=== PATIENT | male | born 1985 | race African-American/Black ===

== ENCOUNTER 2020-06-30 09:48 | Outpatient (RCR) | payer BC, SELFPAY | END 2020-08-23 23:59 | LOC: IMMUN 09:48 | PROVIDERS: PCP Family Medicine; Referring Provider Family Medicine; Visit Provider Family Medicine | DX: Z23 Encounter for immunization (principal) | CPT/HCPCS: 0012A; 91301 ==

== ENCOUNTER 2023-11-14 13:00 | Outpatient (RCR) | payer OTHER, BC, SELFPAY ==
--- NOTE | 2023-10-18 11:57 | HP.OTEVAL_ITS ---
Patient's Visit Information Visit Information Visit Information: CAROL ANN Jr. is a 38 year old M, referred to Occupational Therapy by Dr. Tom Moreno MD, with a diagnosis of right wrist sprain. Date of Evaluation: 10/18/23 Occupational Therapist: Julia Armstrong, DARIUS/Leonor, CHT Subjective Subjective: This 38 year old male was seen for OT eval with dx of right wrist sprain. 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 Pt would benefit from skilled OT services 2-3x week for 6 weeks to return pt to his PLOF. Today therapist ed. pt on dx and wrist ergonomics with grasp. Therapist also initiated wrist stretches to decrease pts tightness. Pt demo understanding of ex and agree to POC. Rehabilitation Potential: Good Anticipated Interventions Anticipated Interventions: A/AAROM/PROM, Strengthening, Triggerpoint Release, Modalities, Joint Protection/Energy Conservation, Ergonomic Education and Home Program Visit Plan Frequency: 2-3x /Week Duration: 6 Weeks TEXT: Thank you for the opportunity to evaluate your patient. For Medicare and Medicare HMO plans, please review the plan of care and approve it. It will need to be FAXED BACK to us at [phone] for Medicare purposes. Please let me know if there are questions or concerns regarding this plan of care. Physician Signature: Date:
--- NOTE | 2023-11-15 10:53 | HP.OTDCSUM ---
Discharge Summary D/C Summary: It has been my pleasure to treat CAROL ANN Jr. under orders from Dr. Tom Moreno MD, for the diagnosis of right wrist sprain for a total of 8 visit(s). Please see the following information for a summary of their discharge status. 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 Goals are met at this time, pt agrees to d/c at this time. 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 pt has made significant gains and tolerated therapy well. pt to continue HEP and agrees to POC. d/c sentence: If there are questions or concerns regarding this patient's occupational therapy, please fell free to call me at [phone]. Thank you for the referral of this patient. Sincerely, Julia Armstrong OTR/L, CHT
== END 2023-11-14 19:00 | disposition home or self-care (01) ==
LOC: OT 13:00
PROVIDERS: PCP Family Medicine; Referring Provider Orthopaedic Surgery; Visit Provider Orthopaedic Surgery
DX: S63.501D Unspecified sprain of right wrist, subsequent encounter (principal)
CPT/HCPCS: 97035; 97110; 97140; 97166